=== PATIENT | female | born 1955 ===

== ENCOUNTER 2022-09-16 16:44 | Emergency (ER) | payer MEDICARE, MEDICAID, SELFPAY ==
[2022-09-16 17:08] VITALS: BP 108/74; BP 135/71; PULSE 91; PULSE 94; RESP 18; TEMP 36.7; O2SAT 95; O2SAT 97; BMI 29.7
--- NOTE | 2022-09-16 17:11 | ED.FALL ---
HPI - Fall General Chief Complaint: Fall Stated Complaint: FELL DOWN ESCALATORS BACK PAIN Time Seen by Provider: 09/16/22 18:04 Source: patient Mode of arrival: EMS Limitations: no limitations History of Present Illness HPI Narrative: Patient is a 67-year-old female who presents emergency department via EMS for evaluation after mechanical fall. She was on the escalator and her daughter who was in front of her had fallen backwards subsequently knocking her down. Denies any head strike or loss of consciousness. Denies any use of anticoagulants. She has multiple abrasions to the bilateral upper and lower extremities. Bruising noted to the right proximal upper extremity. no active bleeding. denies any dizziness, lightheadedness, headache, neck pain, neck stiffness. Review of Systems Review of Systems: Yes all other systems are reviewed and are negative [facility] Past Medical History Attestation statement: The following information was validated with the patient. Source: old records reviewed Social History Social History Advance Directives: No Advance Directives Information Provided: No Physical Exam Vital Signs: Vital Signs: Last Vital Signs Temp 98.0 F 09/16/22 17:08 Pulse 91 09/16/22 17:08 Resp 18 09/16/22 17:08 BP 135/71 09/16/22 17:08 Pulse Ox 95 09/16/22 17:08 O2 Del Method Room Air 09/16/22 17:08 BMI result Body Mass Index 29.7 Appearance: Alert.?Oriented to person, place and time. No acute distress.?Normal affect. Eyes: Pupils equal, round and reactive to light.? EOMI. No nystagmus. ENT: Pharynx normal.?? Neck: Normal inspection.? Neck supple.?? no midline cervical spine tenderness, step-offs, deformities CVS: Heart sounds normal. Normal heart rate and rhythm.? Pulses normal.?? Respiratory: No respiratory distress.? Lung sounds clear to auscultation bilaterally?? Abdomen: Soft and non-tender. Normoactive bowel sounds. No pulsatile mass.?? Skin /Extremities: Skin warm and dry.? Normal skin color.? Multiple abrasions to the bilateral upper and lower extremities consistent from escalator stairs. No active bleeding. Full AROM present to our bilateral shoulders, elbows, wrists, hips, knees, ankles. 2+ DP/ PT and radial pulses bilaterally. Neuro: Moves all extremities spontaneously. Sensation intact bilaterally. CN II-XII intact. No focal neuro deficits. Ambulates with normal steady gait. Course Course Course Narrative: RME - 67 yo female with history of arthritis who presents to the ER for evaluation of bilateral lower leg pain and abrasions to her right lower leg along with abrasions to right upper arm [place] [facility] [place], wounds appear to be superficial Medical Decision Making Medical Decision Making MDM Narrative: Patient is a 67-year-old female past medical history of arthritis presenting to emergency department for evaluation after mechanical fall as per HPI. There is no head strike or loss of consciousness and she is not on any anticoagulants. She is overall well-appearing. No focal neurological deficits. Lower suspicion for ICH, fracture, traumatic subluxation, would defer CT imaging at this time. Superficial abrasions present to the bilateral upper and lower extremities no active bleeding, follow-up which would not be amenable to any suture Steri-Strips closure. Discussed plan of care for treatment cleansing twice daily in topical antibiotic ointment. is intact bilateral upper and lower extremities are neurovascularly intact distally, full AROM is present to the joints. Ambulatory with a steady gait. Bruising noted to the right proximal arm without any point tenderness, low suspicion for any fracture dislocation. At this time patient stable for discharge home. Discussed treatment with acetaminophen. Outpatient follow-up with primary care provider. Reviewed worrisome signs and symptoms that would warrant re-evaluation in the emergency department. Stable for discharge. Differential Diagnosis Differential Diagnoses: The differential diagnosis associated with the presentation includes ( As noted above) Tests considered The following testing was considered but not selected: considered CT imaging of the head and neck however based on physical examination and history did not feel warranted at Prescription Management I considered prescription management with: Pain Medication Discharge Plan Discharge Clinical Impression: Fall, Abrasion, Contusion of arm, right Patient Disposition: Home, Self-Care Instructions: Bone Bruise (ED), Contusion in Adults (ED) Additional Instructions: as discussed please clean the cuts with mild non scented soap and warm water twice daily. Apply topical bacitracin/ antibiotic ointment to the cuts. You can take Tylenol 500 mg, 2 tablets (1,000mg) every 4-6 hours as needed for pain, but not to exceed 3 doses daily (3,000mg).? Follow-up with primary care provider for any new or worsening symptoms or concerns. Referrals: Ron Ram PA [Primary Care Provider] -
== END 2022-09-16 19:20 | disposition home or self-care (01) ==
PROVIDERS: Emergency Provider Emergency Medicine; PCP Physician Assistant
DX: S40.021A Contusion of right upper arm, initial encounter (principal); S80.812A Abrasion, left lower leg, initial encounter; S80.811A Abrasion, right lower leg, initial encounter; S40.812A Abrasion of left upper arm, initial encounter; S40.811A Abrasion of right upper arm, initial encounter; W10.0XXA Fall (on)(from) escalator, initial encounter; Y93.89 Activity, other specified; Y92.89 Other specified places as the place of occurrence of the external cause; Y99.9 Unspecified external cause status
CPT/HCPCS: 99282